=== PATIENT | female | born 1965 | race Caucasian/White ===

== ENCOUNTER 2022-07-17 15:39 | Outpatient (CLI) | payer OTHER, SELFPAY ==
--- NOTE | 2022-07-17 16:00 | CRLHL7_ITS ---
For Patients: As a result of the Century Cures Act, medical imaging exams and procedure reports are released immediately into your electronic medical record. You may view this report before your referring provider. If you have questions, please contact your health care provider. INDICATION: Left arm and face paresthesias. TECHNIQUE: CT of the head without contrast. Coronal and sagittal reformats are included. COMPARISON: None. FINDINGS: No CT evidence of acute cortical infarct. No loss of bundy white matter differentiation. No hyperdense vessels to suggest intracranial thrombus. No acute intracranial hemorrhage. No mass effect or midline shift. No hydrocephalus or extra-axial collections. White matter is within normal limits for age. No acute osseous abnormalities. Mastoid air cells and paranasal sinuses are clear. Normal soft tissues. IMPRESSION: IMPRESSION:1. No CT evidence of acute cortical infarct. No acute intracranial hemorrhage. No other acute intracranial findings. Please note that all CT scans at this facility use dose modulation, iterative reconstruction, and/or weight-based dosing when appropriate to reduce radiation dose to as low as reasonably achievable. Dictated by Nato Fam MD @ 07/17/2022 6:32:07 PM (Electronically Signed)
--- NOTE | 2022-07-17 17:00 | CRLHL7_ITS ---
For Patients: As a result of the Cures Act, medical imaging exams and procedure reports are released immediately into your electronic medical record. You may view this report before your referring provider. If you have questions, please contact your health care provider. CLINICAL HISTORY: TIA TECHNIQUE: The carotid circulations and the vertebral arteries in the neck were examined with graham-scale ultrasound, color-flow and Doppler spectral analysis. Degrees of stenosis were determined using SRU 2002 Consensus Panel Criteria. FINDINGS: Sonographic images demonstrate atherosclerotic plaque formation without suspicious soft tissue mass. There was antegrade blood flow demonstrated within the vertebral arteries and the subclavian arteries demonstrated a normal triphasic waveform. The spectral Doppler tracings of the common carotid, internal and external carotid arteries demonstrate turbulence and spectral broadening within the right ICA. There was mild significant elevation of peak systolic blood flow which would indicate a hemodynamically-significant stenosis by SRU criteria in the mid right ICA measuring 130 cm/second. The ICA/CCA peak systolic velocity ratio measures 1.8 on the right and 1.4 on the left. IMPRESSION: 50-69 percent stenosis of the mid right ICA. Less than 50 percent stenosis of the left ICA. Dictated by Fidel Hanson MD @ 07/18/2022 10:27:18 AM (Electronically Signed)
== END 2022-07-17 15:40 | disposition home or self-care (01) ==
LOC: CT 15:42
PROVIDERS: PCP Family Medicine; Visit Provider Family Medicine
DX: R20.2 Paresthesia of skin (principal); G45.9 Transient cerebral ischemic attack, unspecified
CPT/HCPCS: 70450; 93880

== ENCOUNTER 2022-12-10 16:12 | Outpatient (CLI) | payer BC, SELFPAY | END 2022-12-10 16:13 | disposition home or self-care (01) | PROVIDERS: PCP Family Medicine; Visit Provider Registered Nurse | DX: Z01.419 Encounter for gynecological examination (general) (routine) without abnormal findings (principal); N88.9 Noninflammatory disorder of cervix uteri, unspecified; Z13.6 Encounter for screening for cardiovascular disorders; Z13.1 Encounter for screening for diabetes mellitus | CPT/HCPCS: 80061; 82947; 87252 ==

== ENCOUNTER 2022-12-11 19:45 | Emergency (ER) | payer BC, SELFPAY ==
[2022-12-11] VITALS (10 sets, daily range): BP systolic 110–139; BP diastolic 64–81; PULSE 72–89; RESP 16; TEMP 36.4; O2SAT 95–97; BMI 33.5
--- NOTE | 2022-12-11 20:00 | ED.NURSE ---
On arrival PIV established, labs drawn. Patient placed on diagnostic cardiac sonographer, continuos pulse ox and NIBP. Patient reports numbness and tingling to left side of face into left shoulder/clavicle. No other stroke like symptoms. Remainder of neuros WNL. MD in to assess patient at 2000. Per MD stroke alert is not needed.
--- NOTE | 2022-12-11 20:33 | ED.NURSE ---
Per MD stroke alert is not needed.
--- NOTE | 2022-12-11 20:36 | ED_ITS ---
HPI - General Adult General Chief complaint: Neuro Symptoms/Altered Deficit Stated complaint: possible stroke Time Seen by Provider: 12/11/22 20:08 History of Present Illness HPI narrative: This 57-year-old female comes in reporting some tingling sensation in the left side of her face, left side of her neck and into the upper part of her left arm. These symptoms started earlier today. She does not report any weakness or speech change. She does have a mild headache and feels some pressure behind her left eye. She had similar symptoms about 5 months ago and did have CT scan of her head showing normal findings. She quit smoking at that time. She is taking Lipitor because she has some carotid plaques identified on ultrasound. She is reporting lots of lower extremity aches and pains since taking Lipitor. Related Data Home Medications Medication Instructions Recorded Confirmed cyanocobalamin (vitamin B-12) 100 100 mcg PO QDAY 03/11/22 12/11/22 mcg tablet (Vitamin B-12) diphenhydramine 25 1 tab PO Q6H PRN 03/11/22 12/11/22 mg-acetaminophen 500 mg tablet (Tylenol PM Extra Strength) multivitamin (Multiple Vitamins 1 tab PO QDAY 03/11/22 12/11/22 tablet) furosemide 20 mg tablet (Lasix) 20 mg PO QAM PRN 07/09/22 12/11/22 aspirin 81 mg capsule 81 mg PO QDAY 12/10/22 12/11/22 omega-3 417 mg-dha 120 mg-epa-276 cap PO 12/10/22 12/10/22 mg-fish oil 600 mg-tumeric capsule Previous Rx's Medication Instructions Recorded atorvastatin 40 mg tablet 40 mg PO QDAY #90 tabs 07/23/22 methylprednisolone 4 mg tablets in See Rx Instructions PO .COMPLEX 12/11/22 a dose pack (Medrol (Kemal)) #21 ea rosuvastatin 20 mg tablet (Crestor) 20 mg PO DAILY #30 tabs 12/11/22 Allergies Allergy/AdvReac Type Severity Reaction Status Date / Time latex Allergy Mild Rash Verified 12/11/22 19:55 Sulfa (Sulfonamide Allergy Rash Verified 12/11/22 19:55 Antibiotics) Review of Systems Status of ROS: Reports: 10 or more systems reviewed and unremarkable except as noted in History and below Narrative: Constitutional: No fevers, no weight gain or loss. Eyes: No discharge. No vision changes. HENT: No congestion, no sore throat, no ear pain. Cardiovascular: No chest pain, no palpitations. Respiratory: No shortness of breath, no wheezes, no cough. Gastrointestinal: No abdominal pain, no vomiting, no diarrhea. Genitourinary: No dysuria, no hematuria. Musculoskeletal: Normal range of motion. Skin: No rashes, no pruritis. Neurological: No dizziness, weakness, speech change. Sensory change as described above. Endo/Heme/Allergies: No bruising or bleeding. No polydipsia. Pysch: no suicidality, no anxiety, no insomnia. All other systems reviewed and are negative. PFSH PFSH Surgical History (Updated 12/09/22 @ 15:08 by Becky Baptiste ~ [facility] H/O excision of ganglion cyst (11/03/07) ?Z98.890 - Other specified postprocedural states (ICD-10) H/O tubal ligation ?Z98.51 - Tubal ligation status (ICD-10) History of arthroscopy of left shoulder (06/02/12) ?Z98.890 - Other specified postprocedural states (ICD-10) History of bunionectomy (03/23/14) ?Z98.890 - Other specified postprocedural states (ICD-10) History of carpal tunnel surgery of left wrist (~2004) ?Z98.890 - Other specified postprocedural states (ICD-10) S/P arthroscopy of right shoulder (10/24/10) ?Z98.890 - Other specified postprocedural states (ICD-10) Status post gastric bypass for obesity (04/25/09) ?Z98.84 - Bariatric surgery status (ICD-10) Status post left foot surgery (03/16/07) ?Z98.890 - Other specified postprocedural states (ICD-10) Family History Mother Arthritis Father Arthritis Social History (Updated 12/09/22 @ 15:09 by Becky Baptiste ~ [facility]) Narrative: former smoker-07/2022 quit after mini stroke Smoking Status: Former smoker What tobacco products do you use: cigarettes Smoking quit date/years: <= 15 years ago Do you use any of these nicotine containing products: None Second hand tobacco smoke exposure: No How often do you have a drink containing alcohol: never AUDIT-C Alcohol total score: 0 Non-prescribed substance use: denies use Little interest or pleasure in doing things: not at all Feeling down, depressed, or hopeless: not at all Exam Narrative: Exam Narrative: Constitutional: Well-developed, well-nourished, no acute distress. HEENT: Normocephalic, atraumatic. Neck: Normal range of motion. Nontender. Supple. Heart: Regular. No murmurs. Normal rate. Intact distal pulses. Lungs: Clear to auscultation. No chest discomfort. No wheezes, rhonchi, or rales. Abdomen: Normal bowel sounds. Nontender. No rebound tenderness. Genitalia: Deferred. Back: No midline tenderness. Normal range of motion. Extremities: Normal range of motion. No injury. Skin: Intact. No rash. Warm. No erythema or pallor. Neurologic: No altered sensation. No weakness. Alert and oriented. No facial asymmetry. Tongue is midline. Requirements Engineer strength is equal bilaterally. Joppll-ja-ioeb is normal. No pronator drift. She is able to raise each leg from the bed. Spurling's test is negative. Psychiatric: No suicidality. No anxiety or depression. No insomnia. Nursing notes and vitals signs are reviewed. Const: Vital Signs, click to edit/add: Vital Signs - 24 hr 12/11/22 19:50 12/11/22 20:04 12/11/22 20:05 Temperature 97.6 F Pulse Rate 75 76 Pulse Rate [Pulse Oximeter] 89 Respiratory Rate 16 Blood Pressure 137/74 Blood Pressure [Ri ght Upper Arm] 139/81 Pulse Oximetry 97 95 96 Oxygen Delivery Me thod Room Air 12/11/22 20:15 12/11/22 20:17 Temperature Pulse Rate 77 79 Pulse Rate [Pulse Oximeter] Respiratory Rate Blood Pressure 130/74 Blood Pressure [Ri ght Upper Arm] Pulse Oximetry 97 96 Oxygen Delivery Me thod Room Air Course Vital Signs Vital signs: Initial Vital Signs Temperature 97.6 F 12/11/22 19:50 Temperature Source Temporal Artery Scan 12/11/22 19:50 Pulse Rate 89 12/11/22 19:50 Respiratory Rate 16 12/11/22 19:50 Blood Pressure 139/81 12/11/22 19:50 Blood Pressure Mean 100 12/11/22 19:50 Blood Pressure Position Supine 12/11/22 19:50 Pulse Oximetry 97 12/11/22 19:50 Oxygen Delivery Method Room Air 12/11/22 19:50 Vital Signs Temperature 97.6 F 12/11/22 19:50 Pulse Rate 89 12/11/22 19:50 Respiratory Rate 16 12/11/22 19:50 Blood Pressure 139/81 12/11/22 19:50 Pulse Oximetry 97 12/11/22 19:50 Oxygen Delivery Method Room Air 12/11/22 19:50 Temperature 97.6 F 12/11/22 19:50 Pulse Rate 79 12/11/22 20:17 Respiratory Rate 16 12/11/22 19:50 Blood Pressure 130/74 12/11/22 20:17 Pulse Oximetry 96 12/11/22 20:17 Oxygen Delivery Method Room Air 12/11/22 20:17 Medical Decision Making MDM Narrative Medical decision making narrative: This patient comes in reporting symptoms of altered sensation mostly tingling in the left face and left upper extremity proximally. She has had symptoms like this in the past and did have a workup which was negative. She is not showing any signs of weakness and her neurologic exam is completely normal today. I did discuss lab and imaging options with the patient. She has had a workup done for these similar symptoms in the somewhat recent past. I did give reassurance is that she is not showing any sign of stroke. She does report chronic symptoms in her neck and had been accustomed to going to a chiropractor to have her neck adjusted. She was advised not to do this and has discontinued any neck manipulations. Her symptoms are not at all suspicious for a central process. She does not have a history of migraine headaches but does report some pain behind her left eye so this could be a migraine variant. More likely it is some peripheral nerve under some pressure causing sensations symptoms only. In a process of shared decision making the patient declined any further studies at this time. She did receive an oral dose of dexamethasone 10 mg and prescription for Medrol Dosepak. I advised her to discontinue the Lipitor and did provide a prescription for Crestor. She is instructed to follow-up with her primary physician to review this medication change. Discharge Plan Discharge Clinical Impression: Paresthesias Condition: Stable Additional Instructions: Discontinue Lipitor. Start Crestor. Take medication otherwise as prescribed. Follow up with primary physician to review medications. Return if worsening. Prescriptions: New rosuvastatin [Crestor] 20 mg tablet 20 mg PO DAILY Qty: 30 2RF methylprednisolone [Medrol (Kemal)] 4 mg tablets,dose pack See Rx Instructions .ROUTE .COMPLEX Qty: 21 0RF Rx Instructions: orally per package directions No Action furosemide [Lasix] 20 mg tablet 20 mg PO QAM PRN omega 7-did-aqc-fish-turmeric 417 mg-120 mg- 276 mg-600 mg capsule PO aspirin 81 mg capsule 81 mg PO QDAY multivitamin [Multiple Vitamins] Tablet 1 tab PO QDAY cyanocobalamin (vitamin B-12) [Vitamin B-12] 100 mcg tablet 100 mcg PO QDAY diphenhydramine-acetaminophen [Tylenol PM Extra Strength] 25-500 mg tablet 1 tab PO Q6H PRN atorvastatin 40 mg tablet 40 mg PO QDAY Qty: 90 3RF Follow Up/Referrals: Óscar Montague MD [Primary Care Provider] - Stand Alone Forms: [facility] Info Instructions
[2022-12-11] MEDS: dexAMETHasone 10 MG/ML inj PO (20:59)
== END 2022-12-11 21:09 | disposition home or self-care (01) ==
PROVIDERS: Emergency Provider Emergency Medicine Emergency Medical Services; PCP Family Medicine
DX: R20.2 Paresthesia of skin (principal)
CPT/HCPCS: 99283; 99284; J1100

== ENCOUNTER 2022-12-29 10:33 | Outpatient (CLI) | payer BC, SELFPAY ==
--- NOTE | 2022-12-29 10:45 | CRLHL7_ITS ---
For Patients: As a result of the Century Cures Act, medical imaging exams and procedure reports are released immediately into your electronic medical record. You may view this report before your referring provider. If you have questions, please contact your health care provider. BILATERAL SCREENING MAMMOGRAM WITH COMPUTER-AIDED DETECTION AND TOMOSYNTHESIS TECHNIQUE: CC and MLO views were obtained. These mammographic images have been obtained using full-field digital technique. These mammographic images were interpreted with the benefit of computer-aided detection. Breast Tomosynthesis was used in this interpretation. COMPARISON FILM: 10/30/21, 07/03/20, 01/14/19. FINDINGS: There are scattered areas of fibroglandular density IMPRESSION: There is no radiographic evidence for malignancy. ASSESSMENT: BI-RADS Category 1: Negative RECOMMENDATION: Routine screening mammogram in 1 year. A lay language report of this examination will be provided to the patient. Fidel Hanson M.D. Diagnostic Radiologist [email or web address] RAY/Dictated by: Fidel Hanson MD @ 12/29/2022 12:10:00 PM (Electronically Signed)
== END 2022-12-29 10:34 | disposition home or self-care (01) ==
LOC: MAMMO 10:34
PROVIDERS: PCP Family Medicine; Visit Provider Registered Nurse
DX: Z12.31 Encounter for screening mammogram for malignant neoplasm of breast (principal)
CPT/HCPCS: 77063; 77067; 87086

== ENCOUNTER 2023-04-13 06:08 | Day surgery (SDC) | payer OTHER, BC, SELFPAY ==
[2023-04-13 06:27] VITALS: BMI 31.6
[2023-04-13 06:28] VITALS: BP 133/77; PULSE 73; RESP 16; TEMP 36.3; TEMP 36.6; O2SAT 97
[2023-04-13] MEDS: ETHYL CHLORIDE 1 APPLICATION 1 APPLIC TOPICAL (06:50)
[2023-04-13] MEDS: BUPIVACAINE 0.5% 30 ML INJECTION (06:50)
[2023-04-13 07:15] VITALS: BP 139/66; PULSE 80; RESP 18; O2SAT 97
[2023-04-13 07:20] VITALS: BP 164/76; PULSE 72; RESP 20; O2SAT 98
[2023-04-13 07:25] VITALS: BP 149/70; PULSE 67; RESP 17; O2SAT 98
--- NOTE | 2023-04-13 07:26 | P.ORPRC_ITS ---
Procedure Note Date of procedure: 04/13/23 Procedure: PREOPERATIVE DIAGNOSIS: 1. Right carpal tunnel syndrome POSTOPERATIVE DIAGNOSIS: 1. Right carpal tunnel syndrome PROCEDURE: 1. Right open carpal tunnel release SURGEON: Abel Robins MD. HAND ALMOND BLANCHER: MIRANDA Reyes ANESTHESIA: Local anesthetic (50:50 mixture of 1% lidocaine with epi and 0.5% marcaine plain) - 10ml total IMPLANTS: None EBL: 2 mL TOURNIQUET: None COMPLICATIONS: None evident INDICATIONS: The patient is a pleasant 57-year-old female who has experienced right hand numbess/tingling affecting the radial 3.5 digits for multiple months. It has progressively gotten worse. Nonoperative management has been tried and failed, and therefore surgery was recommended. DESCRIPTION OF PROCEDURE: Following a thorough discussion of risks, benefits, and alternatives consent was obtained and the operative extremity was marked. The patient was brought to the operating room and placed supine on the operating table. Local anesthesia induction was undertaken in preop holding. No antibiotics were administered as this was planned to be a local case only. Proper time-out was performed identifying proper patient, site, and procedure. The operative extremity was prepped and draped in the appropriate sterile fashion using ChloraPrep. An incision was made in line with the radial border of the ring finger beginning 1 cm distal to the distal wrist crease and progressing for another 2.5cm distal. Caution was taken to stay proximal to Santana's cardinal line. Sharp incision through the skin, subcutaneous tissue, and palmar fascia was performed. The thenar musculature was bluntly elevated off the transverse carpal ligament. The ligament was directly visualized, and divided sharply with a 15 blade. This was released from its most proximal to the most distal extent. Metzenbaum scissor was also utilized to release the fascia extension proximally. We confirmed complete release of the transverse carpal ligament. Closure was performed with 4-O nylon in interrupted fashion. Soft dressings were applied, and the patient was transferred to the recovery room in stable condition. PLAN: 1. Encourage elevation of the operative extremity. 2. Range of motion of the fingers and hand/wrist as tolerated. 3. Ibuprofen/acetaminophen and/or Percocet as needed for pain control. 4. Follow up with PA visit or nurse visit in 12-16 days for wound check and suture removal.
[2023-04-13 07:30] VITALS: BP 135/59; PULSE 70; RESP 15; O2SAT 98
[2023-04-13] MEDS: NEOMYCIN/BACITRACIN/POLYMYXIN B 1 APPLIC TOPICAL (07:31)
[2023-04-13 07:35] VITALS: BP 136/73; PULSE 66; RESP 16; TEMP 36.7; O2SAT 96
== END 2023-04-13 07:47 | disposition home or self-care (01) ==
PROVIDERS: PCP Family Medicine; Visit Provider Orthopaedic Surgery Sports Medicine
PROC: (CPT 64721; principal; 2023-04-13 07:15)
DX: G56.01 Carpal tunnel syndrome, right upper limb (principal)
CPT/HCPCS: 64721; J0665

== ENCOUNTER 2023-05-07 14:54 | Outpatient (CLI) | payer BC, SELFPAY ==
--- NOTE | 2023-05-07 15:30 | MR_ITS ---
[facility] [address] [facility] [address] Phone:?[phone] Fax:?[phone] Referring Physician Information: Abel Robins M.D. [address] [facility] [address] Phone:?[phone] Fax:?[phone] Patient:Felicita Wade D.O.B:?1965 Sex:?Female Phone:?[phone] [facility] MRN:?[id number] Exam Date:?05/07/2023 EXAM: MRI EXAMINATION OF THE RIGHT HIP CLINICAL INFORMATION: Female, 57 years old, with right hip pain. INDICATION: Evaluate for gluteus medius/minimus tear. PRIOR SURGERY: None reported. PLAIN FILMS: Hip radiographs dated 04/28/2023. COMPARISONS: No prior MRIs available. TECHNICAL INFORMATION: Using a 1.5T MR scanner and a localizing surface coil: coronals: PD, T2 sagittals: PD, T2 oblique axials: PD straight axials: PDFS coronals: T1, STIR of pelvis and hips SEDATION: None CONTRAST: None FINDINGS: Hip joint: Physiologic hip effusion. Mild generalized thinning of the articular cartilage is present throughout the right hip joint, without convincing full-thickness chondral defect/loss. No intra-articular bodies. Labrum: Intrasubstance degeneration and poorly defined tearing is present throughout the anterosuperior labrum (axial PD oblique series 6 images 10-14). Proximal femur: No femoral occult fracture, stress injury, marrow edema or osteonecrosis. Normal femoral head/neck junction offset. No fibrocystic change. Minimal marginal osteophytosis. No convincing femoral cam morphology. Acetabulum: Mild marginal osteophytosis. Mild subchondral cystic change is present in the anterosuperior aspect of the acetabulum (axial PDFS series 7 image 6). No stress/occult fracture or periacetabular ossicle. Version: Decreased cranial acetabular anteversion borders on retroversion. Coverage: Right lateral center edge (CE) angle measures approximately 30? (normal 25?-39?), midline coronal series 4 image 14, corrected for pelvic obliquity. Ligamentum teres: Ligamentum teres is intact and unremarkable. Iliofemoral ligament: The iliofemoral ligament is moderately-markedly thickened (axial PD oblique series 6 images 10-13) Pelvis osseous structures: Sacral ala and sacroiliac joints: No stress/insufficiency fractures or marrow edema/pathology. No demonstrable sacroiliitis. Pubic rami and pubic symphysis: No stress/insufficiency fractures or marrow edema/pathology. Normal alignment without hypertrophy or evidence of ongoing osteitis pubis. Myotendinous structures: Gluteus abductors: Marked tendinopathy and high-grade attritional tearing of gluteus minimus (axial PDFS series 7 images 10-17). There is also moderate tendinopathy and ill-defined intermediate grade partial-thickness tearing of the anterior one half of the gluteus medius (axial PDFS series 7 images 8-14). Adductors: No demonstrable tendinopathy or strain/tear. Hamstrings: Moderate-marked common hamstrings tendinopathy, bilaterally, with intermediate grade partial-thickness tearing on the right and low-grade partial- thickness tearing on the left. Flexors: Intact iliopsoas and rectus femoris, without strain/tear. External rotators: Intact, without demonstrable ischiofemoral impingement. Gluteal aponeurotic fascia and IT band: Unremarkable. Bursae: Mild right greater trochanteric bursitis. Intrapelvic contents: Free fluid: No free fluid seen within the pelvis. Pelvic viscera: No discrete intrapelvic mass is identified. Lymph nodes: No lymphadenopathy by MRI size criteria. Neurovascular structures: No discrete cyst, mass or other compression upon the portions visualized of sciatic or femoral nerves. Lumbar spine: The visualized portions of the lower lumbar spine are unremarkable. IMPRESSION: 1. Marked gluteus minimus tendinopathy with high-grade attritional tearing. There is also moderate tendinopathy and ill-defined intermediate grade partial tearing involving the anterior one half of the gluteus medius. 2. Moderate-marked bilateral common hamstrings tendinopathy with intermediate grade partial-thickness tearing on the right and low-grade partial-thickness tearing in the left. 3. Mild osteoarthritis of the right hip joint. 4. Intrasubstance degeneration and poorly defined tearing of the anterosuperior labrum. No paralabral cyst. 5. Mild right greater trochanteric bursitis. 6. Nonspecific moderate-marked thickening of the iliofemoral ligament, which could reflect adhesive capsulitis. 7. No fracture or osseous stress reaction. BC Electronically signed on 05/07/2023 7:31:00 PM by Ra Villatoro M.D.
== END 2023-05-07 14:55 | disposition home or self-care (01) ==
PROVIDERS: PCP Family Medicine; Visit Provider Orthopaedic Surgery Sports Medicine
DX: M25.551 Pain in right hip (principal); S76.011A Strain of muscle, fascia and tendon of right hip, initial encounter; M16.11 Unilateral primary osteoarthritis, right hip; M70.61 Trochanteric bursitis, right hip; M75.01 Adhesive capsulitis of right shoulder
CPT/HCPCS: 73721

== ENCOUNTER 2023-07-24 07:05 | Outpatient (CLI) | payer BC, SELFPAY ==
--- NOTE | 2023-07-24 07:15 | MR_ITS ---
[facility] [address] [facility] [address] Phone:?[phone] Fax:?[phone] Referring Physician Information: Abel Robins M.D. [address] [facility] [address] Phone:?[phone] Fax:?[phone] Patient:Felicita Wade D.O.B:?1965 Sex:?Female Phone:?[phone] [facility] MRN:?[id number] Exam Date:?07/24/2023 EXAM: MRI of the LEFT KNEE, without contrast CLINICAL HISTORY: Left knee pain and swelling. Evaluate for tear of the medial meniscus. COMPARISONS: Plain radiographs 06/23/2023. TECHNICAL: MR sequences of the left knee: sagittals: PD, PDFS coronals: PD, T2FS axials: PD, PDFS CONTRAST: None SEDATION: None FINDINGS: Bones: No fracture, bone marrow contusion, or other suspicious bone marrow signal abnormality. Patellofemoral joint: Cartilage: There is diffuse grade II and III chondromalacia over the trochlear groove and diffuse grade II chondromalacia over the inferior two thirds of the patella. Retinacula: The medial and lateral retinacula are intact. Fat pads: The infrapatellar, quadriceps, and prefemoral fat pads are unremarkable. Knee joint: Effusion: Trace left knee joint effusion. Popliteal cyst: Small popliteal cyst. Intra-articular bodies: None. Posteromedial corner: The semimembranosus and pes anserine tendons are intact. Medial compartment: Medial meniscus: There is a slitlike very low-grade partial-thickness radial tear of the posterior horn of the medial meniscus best seen on coronal series 8 image 20 superimposed upon more diffuse free edge fraying of the body and posterior horn of the medial meniscus. There is extensive ill-defined tearing of the posterior meniscocapsular tissues. Cartilage: There is a 1.4 cm in AP dimension by 0.9 cm in transverse dimension area of grade II to III chondromalacia over the weight-bearing portion of the medial femoral condyle. Lateral compartment: Lateral meniscus: There is a 1.0 cm in length ill-defined free edge horizontal tear of the body of the lateral meniscus. Cartilage: There is a 2.0 cm in AP dimension by 1.3 cm in transverse dimension area of grade III and IV chondromalacia over the weight-bearing portion of the lateral femoral condyle with associated central osteophyte formation and a 1.5 x 2.0 cm area of grade II to III chondromalacia over the lateral tibial plateau. Ligaments: Anterior cruciate ligament: Intact. Posterior cruciate ligament: Intact. Medial collateral ligament: Intact. Posterior oblique ligament: Intact. Fibular collateral ligament: Intact. Posterolateral corner: The distal biceps femoris tendon, iliotibial band, popliteus tendon, popliteus muscle, popliteofibular ligament, and arcuate ligament are intact. Extensor mechanism: Patellar tendon: Intact. Quadriceps tendon: Intact. IMPRESSION: 1. 1.0 cm in length ill-defined free edge horizontal tear of the body of the lateral meniscus. 2. Slitlike very low-grade partial-thickness radial tear of the posterior horn of the medial meniscus superimposed upon more diffuse free edge fraying of the body and posterior horn of the medial meniscus. Extensive ill-defined tearing of the medial compartment posterior meniscocapsular tissues. 3. 2.0 x 1.3 cm area of grade III and IV chondromalacia over the weight-bearing portion of the lateral femoral condyle with associated central osteophyte formation and a 1.5 x 2.0 cm area of grade II to III chondromalacia over the lateral tibial plateau. 4. 1.4 x 0.9 cm area of grade II to III chondromalacia over the weight-bearing portion of the medial femoral condyle. 5. Diffuse grade II and III chondromalacia over the trochlear groove and diffuse grade II chondromalacia over the inferior two thirds of the patella. 6. Trace left knee joint effusion. Small popliteal cyst. 7. No ligamentous injury of the left knee. RCB Electronically signed on 07/24/2023 9:52:00 AM by Ethan Navarro M.D.
== END 2023-07-24 07:06 | disposition home or self-care (01) ==
LOC: MRI 07:05
PROVIDERS: PCP Family Medicine; Visit Provider Orthopaedic Surgery Sports Medicine
DX: M25.562 Pain in left knee (principal); S83.282A Other tear of lateral meniscus, current injury, left knee, initial encounter; S83.242A Other tear of medial meniscus, current injury, left knee, initial encounter; M23.92 Unspecified internal derangement of left knee; M94.262 Chondromalacia, left knee; M25.462 Effusion, left knee
CPT/HCPCS: 73721

== ENCOUNTER 2023-08-14 09:07 | Outpatient (CLI) | payer BC, SELFPAY | END 2023-08-14 09:08 | disposition home or self-care (01) | LOC: NFLDREF 14:49 | PROVIDERS: PCP Family Medicine; Referring Provider Family Medicine; Visit Provider Family Medicine | DX: B35.1 Tinea unguium (principal) | CPT/HCPCS: 80076 ==

== ENCOUNTER 2023-11-13 08:07 | Outpatient (CLI) | payer BC, SELFPAY | END 2023-11-13 08:08 | disposition home or self-care (01) | LOC: NFLDREF 11:55 | PROVIDERS: PCP Internal Medicine; Referring Provider Internal Medicine; Visit Provider Internal Medicine | DX: E78.5 Hyperlipidemia, unspecified (principal); Z13.29 Encounter for screening for other suspected endocrine disorder | CPT/HCPCS: 80053; 80061; 84443 ==

== ENCOUNTER 2024-03-22 14:35 | Outpatient (CLI) | payer BC, SELFPAY ==
[2024-03-22 15:37] VITALS: BP 126/82; PULSE 82; RESP 18
--- NOTE | 2024-03-22 15:50 | W.PM.STED ---
Stress Test Note Date Date Seen: 03/22/24 Date of test: 03/22/24 Providers Primary care provider: Boni Brunner Stress test physician: Abhi Vega Stress Test Note Stress test ordered: Stress Echo Indication for test: Chest pain Results discussion: Patient is a 58-year-old female presents here for the above test after discussion the risks benefits and side effects she would like to proceed pretest EKG shows normal sinus rhythm, she does have a right bundle-branch block. Ventricular rate is 62 blood pressure is 164/89. Cardiac stress test medical history form is reviewed in detail. Patient is exercised following Luis Fernando protocol for duration of 9 minutes, and achieved a metabolic equivalent of 10.3 Mets. Her maximum heart rate was 163 which is 118% of the maximum. She did not have any anginal equivalent symptoms. There is no chest pain. No significant ST wave changes suggestive of ischemia are noted. There is no ventricular or dysrhythmia Impression: Negative electrographic portion of stress echo, conditioning was felt to be good Follow up suggested: Await echo imaging, clinical correlation with this will be needed, patient left this testing facility in good condition. There were no complications.
== END 2024-03-22 15:43 | disposition home or self-care (01) ==
LOC: STRESS 14:36
PROVIDERS: PCP Internal Medicine; Visit Provider Family Medicine
DX: R07.89 Other chest pain (principal); I73.9 Peripheral vascular disease, unspecified
CPT/HCPCS: 93016; 93325; 93351

== ENCOUNTER 2024-04-13 14:47 | Outpatient (CLI) | payer BC, SELFPAY ==
--- NOTE | 2024-04-13 15:00 | CRLHL7_ITS ---
For Patients: As a result of the Cures Act, medical imaging exams and procedure reports are released immediately into your electronic medical record. You may view this report before your referring provider. If you have questions, please contact your health care provider. BILATERAL SCREENING MAMMOGRAM WITH COMPUTER-AIDED DETECTION AND TOMOSYNTHESIS TECHNIQUE: CC and MLO views were obtained. These mammographic images have been obtained using full-field digital technique. These mammographic images were interpreted with the benefit of computer-aided detection. Breast Tomosynthesis was used in this interpretation. COMPARISON FILM: 12/29/22, 10/30/21, 07/03/20. FINDINGS: There are scattered areas of fibroglandular density IMPRESSION: There is no radiographic evidence for malignancy. ASSESSMENT: BI-RADS Category 1: Negative RECOMMENDATION: Routine screening mammogram in 1 year. A lay language report of this examination will be provided to the patient. Fidel Hanson M.D. Diagnostic Radiologist [email or web address] Transcribed: 6:30 p.mMyla [email or web address]/Dictated by: Fidel Hanson MD @ 04/14/2024 11:21:00 AM (Electronically Signed)
== END 2024-04-13 14:48 | disposition home or self-care (01) ==
LOC: MAMMO 14:49
PROVIDERS: PCP Family Medicine; Visit Provider Family Medicine
DX: Z12.31 Encounter for screening mammogram for malignant neoplasm of breast (principal)
CPT/HCPCS: 77063; 77067

== ENCOUNTER 2024-08-03 16:06 | Outpatient (CLI) | payer BC, SELFPAY | END 2024-08-03 16:07 | disposition home or self-care (01) | PROVIDERS: PCP Family Medicine; Visit Provider Family Medicine | DX: R03.0 Elevated blood-pressure reading, without diagnosis of hypertension (principal); E78.5 Hyperlipidemia, unspecified; F41.9 Anxiety disorder, unspecified; I73.9 Peripheral vascular disease, unspecified; M16.11 Unilateral primary osteoarthritis, right hip; R00.2 Palpitations; Z98.84 Bariatric surgery status | CPT/HCPCS: 80053; 80061; 82306; 82525; 82607; 82728; 83735; 84443; 84446; 84590; 84597; 84630 ==

== ENCOUNTER 2024-08-15 15:10 | Outpatient (CLI) | payer BC, SELFPAY ==
--- NOTE | 2024-08-15 15:45 | CRLHL7_ITS ---
For Patients: As a result of the Cures Act, medical imaging exams and procedure reports are released immediately into your electronic medical record. You may view this report before your referring provider. If you have questions, please contact your health care provider. CLINICAL HISTORY: Peripheral vascular disease TECHNIQUE: The carotid circulations and the vertebral arteries in the neck were examined with graham-scale ultrasound, color-flow and Doppler spectral analysis. Degrees of stenosis were determined using SRU 2002 Consensus Panel Criteria. Comparison: 07/17/2022 FINDINGS: Sonographic images demonstrate mild bilateral atherosclerotic plaque formation without suspicious soft tissue mass. There was antegrade blood flow demonstrated within the vertebral arteries and the subclavian arteries demonstrated a normal triphasic waveform. The spectral Doppler tracings of the common carotid, internal and external carotid arteries demonstrate no abnormal turbulence or spectral broadening. There was no significant elevation of peak systolic blood flow which would indicate a hemodynamically-significant stenosis by SRU criteria. The ICA/CCA peak systolic velocity ratio measures 1.1 on the right and 1.2 on the left. IMPRESSION: Less than 50 percent stenosis of the internal carotid arteries bilaterally. Dictated by Fidel Hanson MD @ 08/16/2024 5:57:02 AM (Electronically Signed)
== END 2024-08-15 15:11 | disposition home or self-care (01) ==
LOC: US 15:11
PROVIDERS: PCP Family Medicine; Visit Provider Family Medicine
DX: I73.9 Peripheral vascular disease, unspecified (principal); I65.23 Occlusion and stenosis of bilateral carotid arteries
CPT/HCPCS: 93880

== ENCOUNTER 2024-11-08 16:15 | Outpatient (CLI) | payer BC, SELFPAY | END 2024-11-08 16:16 | disposition home or self-care (01) | LOC: NFLDREF 16:16 | PROVIDERS: PCP Family Medicine; Visit Provider Family Medicine | DX: D64.9 Anemia, unspecified (principal) | CPT/HCPCS: 82728 ==

== ENCOUNTER 2024-11-17 14:52 | Outpatient (CLI) | payer BC, SELFPAY ==
--- NOTE | 2024-11-17 15:00 | CRLHL7_ITS ---
For Patients: As a result of the Century Cures Act, medical imaging exams and procedure reports are released immediately into your electronic medical record. You may view this report before your referring provider. If you have questions, please contact your health care provider. INDICATION: Lung cancer screening. History of smoking. High risk patient with greater than pack-year smoking history. TECHNIQUE: Low-dose lung cancer screening non-contrast CT chest. Dose reduction techniques were used. COMPARISON: None. FINDINGS: NODULES: Calcified granuloma within the right upper lobe incidentally noted. LUNGS AND PLEURA: No infiltrate or pleural effusion. MEDIASTINUM: Left axillary lymph nodes are similar to prior mammogram studies. Visualized thyroid gland is unremarkable. No adenopathy in the mediastinum. CORONARY ARTERY CALCIFICATION: None. LIMITED UPPER ABDOMEN: Possible subtle gallstones in the gallbladder. Postop changes to the stomach. MUSCULOSKELETAL: Multilevel degenerative spurring throughout the thoracic spine. No vertebral body compression fracture. IMPRESSION: 1. Negative for lung cancer screening purposes. 2. Possible gallstones. Consider right upper quadrant ultrasound. LUNG-RADS CATEGORY: 2: Benign. RADIOLOGIST RECOMMENDATION: Continue annual screening with low-dose CT chest in 12 months. Please note that all CT scans at this facility use dose modulation, iterative reconstruction, and/or weight-based dosing when appropriate to reduce radiation dose to as low as reasonably achievable. Dictated by Fidel Hanson MD @ 11/18/2024 9:29:33 AM (Electronically Signed)
== END 2024-11-17 14:53 | disposition home or self-care (01) ==
LOC: CT 14:52
PROVIDERS: PCP Family Medicine; Visit Provider Family Medicine
DX: Z12.2 Encounter for screening for malignant neoplasm of respiratory organs (principal); Z87.891 Personal history of nicotine dependence
CPT/HCPCS: 71271

== ENCOUNTER 2025-01-30 15:13 | Outpatient (CLI) | payer BC, SELFPAY ==
--- NOTE | 2025-01-30 15:30 | MR_ITS ---
[facility] [address] [facility] [address] Phone:?[phone] Fax:?[phone] Referring Physician Information: Gustavo Bhardwaj [address] [facility] [address] Phone:?[phone] Fax:?[phone] Patient:Felicita Wade D.O.B:?1965 Sex:?Female Phone:?[phone] [facility] MRN:?[id number] Exam Date:?01/30/2025 EXAM: MRI of the RIGHT SHOULDER, without contrast CLINICAL INFORMATION: Female, 59 years old, with right shoulder pain. INDICATION: Evaluate for internal derangement. PRIOR SURGERY: History of rotator cuff repair in 2010. PLAIN FILMS: Shoulder radiographs dated 01/20/2025. COMPARISONS: Right shoulder MRI dated 10/04/2010. TECHNICAL INFORMATION: Using a 1.5T MR scanner and a localizing surface coil: coronal obliques: PD, T2FS sagittal obliques: T2, PDFS axials: PD, PDFS SEDATION: None CONTRAST: None FINDINGS: Bones: Proximal humerus: Surgical anchors in the humeral head reflect rotator cuff repair, described below. No stress/occult fracture otherwise abnormal marrow signal/pathology. No humeral Hill-Sachs or reverse Hill-Sachs lesion/impaction or contusion. Glenoid: No fracture or marrow edema/pathology. No osseous Bankart lesion. Rotator cuff and muscles/tendons: Supraspinatus: Status post repair. Moderate-marked tendinopathy and fraying with a 1.5 x 1.1 cm area of near full-thickness tearing at the myotendinous junction (coronal T2 series 7 image 12 and sagittal T2 series 9 image 12). Grade 2 muscle atrophy. Infraspinatus: Moderate infraspinatus tendinopathy and fraying, without tendon tear or muscle atrophy. Teres minor: No tendinopathy, tear or atrophy. Subscapularis: Mild tendinopathy of the superior distal subscapularis without tendon tear or muscle atrophy. Deltoid: No strain or atrophy. Coracoacromial arch: Acromion morphology: Status post anterior acromioplasty for subacromial decompression, with good result. No os acromiale. Acromiohumeral space: The acromiohumeral space is decompressed. Coracohumeral space: The coracohumeral space is within normal limits. Acromioclavicular joint: Joint: Status post AC joint resection for subacromial decompression, good result. Ligaments: Coracoclavicular ligaments are intact. Bursae: Subacromial-subdeltoid: Mild subacromial subdeltoid bursitis. Subcoracoid: No convincing subcoracoid bursal thickening/bursitis. Biceps tendon: The long head of the biceps tendon is present within the bicipital groove. The intra-articular and extra-articular segments are intact without tendinosis, tenosynovitis, or displacement. Glenohumeral joint: Effusion/cyst: Small glenohumeral joint effusion. Articular cartilage: Humeral head: Mild thinning of the articular cartilage along the medial aspect of the humeral head with mild inferomedial marginal osteophytosis. Glenoid: Mild thinning the glenoid articular cartilage, with mild anterior marginal osteophytosis. Loose bodies: No discrete intra-articular body within the joint. Labrum:?Circumferential degeneration and poorly defined fraying of the labrum which is of doubtful clinical significance. Inferior glenohumeral ligament/axillary pouch:?Mild thickening of inferior capsuloligamentous structures (coronal PD series 6 images 12-19). Additionally, there is soft tissue thickening throughout the rotator interval (sagittal PD series 8 images 814) IMPRESSION: 1. Status post supraspinatus tendon repair. There is moderate-marked supraspinatus tendinopathy with a 1.5 x 1.1 cm area of near full-thickness recurrent tearing of the central myotendinous junction. 2. Moderate infraspinatus and mild subscapularis tendinopathy, without tear. 3. 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 4. Status post AC joint resection and anterior acromioplasty for subacromial decompression, with good result. However, there is mild subpulmonic subdeltoid bursitis. 5. Findings in keeping with any clinical symptoms of adhesive capsulitis. 6. Circumferential degeneration and fraying of the labrum, which is of doubtful clinical significance. 7. No tendinopathy, displacement, or tear of the biceps long head tendon. BC Electronically signed on 01/31/2025 8:12:00 AM by Ra Villatoro M.D.
== END 2025-01-30 15:14 | disposition home or self-care (01) ==
LOC: MRI 15:14
PROVIDERS: PCP Family Medicine; Visit Provider Physician Assistant Surgical
DX: M25.511 Pain in right shoulder (principal); M75.101 Unspecified rotator cuff tear or rupture of right shoulder, not specified as traumatic; M19.011 Primary osteoarthritis, right shoulder; M25.411 Effusion, right shoulder; M75.01 Adhesive capsulitis of right shoulder; Z98.890 Other specified postprocedural states
CPT/HCPCS: 73221

== ENCOUNTER 2025-04-26 08:35 | Day surgery (SDC) | payer BC, SELFPAY ==
[2025-04-26] VITALS (16 sets, daily range): BP systolic 113–139; BP diastolic 55–88; PULSE 62–71; RESP 16; TEMP 36.4–36.9; O2SAT 94–100; BMI 34.2
--- NOTE | 2025-04-26 09:12 | W.PM.H&PU ---
History & Physical Update History & Physical Update H&P Reviewed and patient assessed: No changes noted
[2025-04-26] MEDS: SODIUM CHLORIDE 0.9 % (FLUSH) 10 ML SYRINGE IVF (09:30)
[2025-04-26] MEDS: LACTATED RINGERS 1000 ML 1,000 ML 100 ML IV ×2 (09:30→11:07)
[2025-04-26] MEDS: MIDAZOLAM HCL 1 MG/ML inj IVP (10:04)
--- NOTE | 2025-04-26 10:04 | SUR.PREOP ---
TIME?OUT:?1003 PT/RN/MDA?VERIFICATION?OF?SURGICAL?SITE,?PROCEDURE,?AND?CONSENT OBTAINED?PRIOR?TO?INVASIVE?PROCEDURE.
--- NOTE | 2025-04-26 10:20 | W.PM.NB ---
Nerve Block Nerve Block Time Seen by Provider: 10:05 Date Seen: 04/26/25 Type of block requested by surgeon for post-operative analgesia: supraclavicular Side: right Time out performed: Yes Verification of patient name: Yes Verification of date of : Yes Site marking: site marked Name of person performing procedure: Gerber Continuous monitoring Was continuous monitoring of O2 sat, B/P, teletypesetter monitor, recorded every 15 minutes?: Yes Procedure Checklist: sterile prep, needles and gloves Ultrasound guided. Images saved: Yes Medications given in 5ml increments after negative aspiration: Marcaine %: 0.25 mL: 5 Needle gauge: 22 and Exparel mL: 10 Needle gauge: 22 Patient tolerated procedure well: Yes Block Charges Block Charge (with Pro Fee): Brachial Plexus Use of Ultrasound Machine for Block: Yes- US Guidance/pain block
--- NOTE | 2025-04-26 10:21 | P.ANES_ITS ---
Anesthesia Charges Start Date/Time Anesthesia Start Date: 04/26/25 Anesthesia Start Time: 10:14 Stop Date/Time Anesthesia Stop Date: 04/26/25 Anesthesia Stop Time: 12:40 Coding CPT Codes CPT Codes: ANESTH SURGERY OF SHOULDER - 39099 ([id number]) P3 - PATIENT W/SEVERE SYS DISEASE, QK - ATTENDING PHYSICIAN 2-4 CNCRNT ANES PROC, QX - OFFICE NURSE PRACTITIONER SVC W/ MD MED DIRECTION
--- NOTE | 2025-04-26 10:21 | W.ANESCHARGE ---
Anesthesia Charges Start Date/Time Anesthesia Start Date: 04/26/25 Anesthesia Start Time: 10:14 Stop Date/Time Anesthesia Stop Date: 04/26/25 Anesthesia Stop Time: 12:40 Coding CPT Codes CPT Codes: ANESTH SURGERY OF SHOULDER - 41819 ([id number]) P3 - PATIENT W/SEVERE SYS DISEASE, QK - PRACTICE COORDINATOR 2-4 CNCRNT ANES PROC, QX - CALL WORKER PERSON SVC W/ MD MED DIRECTION
--- NOTE | 2025-04-26 12:32 | PM.ORPRC ---
Procedure Note Date of procedure: 04/26/25 Procedure: PREOPERATIVE DIAGNOSES: 1. Right shoulder rotator cuff re-tear. POSTOPERATIVE DIAGNOSES: 1. Right shoulder rotator cuff re-tear. 2. Right shoulder retained loose suture NAME OF OPERATION: 1. Right shoulder arthroscopic rotator cuff re-repair. 2. Right shoulder arthroscopic removal of foreign body (retained loose suture) SURGEON: Abel Robins MD STRATEGIC PLANNING ANALYST: Edgar Severino PA-C. Of note, a skilled certified anesthesiologist assistant was critical for this case to aide in patient positioning, suture manipulation, arm positioning, instrument positioning, and closure. ANESTHESIA: General plus preoperative supraclavicular block. EBL: 25 mL IMPLANTS: Arthrex 5.5 mm BioComposite corkscrew suture anchor (x1) Arthrex 5.5 mm BioComposite SwiveLock suture anchor (x2); COMPLICATIONS: None evident INDICATIONS: The patient is a pleasant, 59-year-old female who underwent a right shoulder rotator cuff mini open repair in the remote past. She did well for number of years. Unfortunately, she had recurrent pain, weakness, and dysfunction. Physical exam was concerning for rotator cuff retear. MRI was obtained indeed showed a significant rotator cuff re-tear of the supraspinatus. Given her dysfunction and failure nonoperative management, surgery was indicated. FINDINGS: Exam under anesthesia revealed stable shoulder with excellent range of motion. The diagnostic arthroscopy revealed relatively healthy articular cartilage of the glenohumeral joint. The Subscapularis tendon was intact with a healthy attachment. The long head of the biceps tendon was intact. The superior rotator cuff tendon was found to be torn full-thickness close to the mild tendinous junction. There was still tendon tissue on the far medial tissue. There also was some posterior retraction of the tendon as I got closer to the footprint on the greater tuberosity. The labrum was degeneratively frayed minimally in the superior and posterior regions. No loose bodies were identified within the pouch or subscapularis recess. PROCEDURE: Following a thorough discussion of risks, benefits, and alternatives, consent was obtained and the right shoulder was marked. The patient was brought to the operating room and placed supine on the operating table. Induction of anesthesia was completed after preoperative supraclavicular block was administered in preop holding. Appropriate time out was performed identifying proper patient, site, and procedure. 2 g IV Ancef was administered within 1 hour of incision preoperatively. The right upper extremity was prepped and draped in the appropriate sterile fashion using ChloraPrep prep. This was after the patient was positioned in the beach chair with their head in neutral alignment and all bony prominences well padded. The shoulder was insufflated with 20mL of normal saline via an 18g spinal needle from a posterior approach. An 11 blade skin incision allowed a blunt trochar to be inserted and diagnostic arthroscopy to be performed with the findings as noted above. Thereafter, the subacromial space was entered. Here, a complete bursectomy was completed allow improved visualization of the rotator cuff tear pattern. The tear was an oblique/longitudinal split of the supraspinatus itself extending from the anterolateral part towards the posteromedial direction. The posterior portion of the supraspinatus had fallen posteriorly. The medial portion of course had retracted medially. This was worthy of marginal convergence sutures (x2) followed by an anteromedial anchor (corkscrew). The double loaded corkscrew sutures were passed in a horizontal mattress fashion through both the posterior tissue and the more medial anterior tissue as well. These tails were brought to 2 separate lateral row anchors with excellent reapproximation of the rotator cuff to the greater tuberosity in conjunction with a marginal convergence sutures. [A small dog ear in the posterior distal tendon tissue was captured with the middle part of a SutureTape and a luggage tag created. These tails were brought to the anterolateral anchor is again helping with reapproximation. Prior to anchor straight truck driver removal, the eyelet sutures were tugged on for each anchor and found that the anchor had excellent stability within the bone. The shoulder was placed through range of motion and found to be stable. The rotator cuff was re-probed and found to be stable. Instruments were removed. Excess fluid was drained, closure performed with 4-0 Monocryl and Steri-Strips. Dressings were applied. Sling was applied. The patient was awoken from anesthesia and transferred to the PACU in stable condition. A skilled certified anesthesiologist assistant was critical for this case to aid in patient positioning, limb positioning, skill to manipulate arthroscopic instruments and camera, suture management, patient safety, and closure. PLAN: 1. Elbow, forearm, wrist and digit range of motion as tolerated. 2. Encouraged ice. 3. Oxycodone for pain as needed. 4. Sling at all times except for ROM and showering. 5. Follow up with PA visit in 1-2 weeks for wound check. Initiate physical therapy following that visit for passive range of motion. Initiate active assisted range of motion at 6 weeks (the rehab process would be slow due to the revision nature). May do pendulums now.
--- NOTE | 2025-04-26 12:57 | P.ANES_ITS ---
Anesthesia Charges Start Date/Time Anesthesia Start Date: 04/26/25 Anesthesia Start Time: 10:14 Stop Date/Time Anesthesia Stop Date: 04/26/25 Anesthesia Stop Time: 12:40 Coding CPT Codes CPT Codes: ANESTH SURGERY OF SHOULDER - 90616 ([id number]) P3 - PATIENT W/SEVERE SYS DISEASE, QK - AGRICULTURE MANAGER 2-4 CNCRNT ANES PROC, QX - HYBRID POWERTRAIN DEVELOPMENT ENGINEER SVC W/ MD MED DIRECTION
--- NOTE | 2025-04-26 12:57 | W.ANESCHARGE ---
Anesthesia Charges Start Date/Time Anesthesia Start Date: 04/26/25 Anesthesia Start Time: 10:14 Stop Date/Time Anesthesia Stop Date: 04/26/25 Anesthesia Stop Time: 12:40 Coding CPT Codes CPT Codes: ANESTH SURGERY OF SHOULDER - 79971 ([id number]) P3 - PATIENT W/SEVERE SYS DISEASE, QK - HAND FLATWORK FINISHER 2-4 CNCRNT ANES PROC, QX - WIRE MILL OPERATOR SVC W/ MD MED DIRECTION
== END 2025-04-26 14:47 | disposition home or self-care (01) ==
LOC: OR 08:36
PROVIDERS: PCP Family Medicine; Visit Provider Orthopaedic Surgery Sports Medicine
PROC: (CPT 29805; principal; 2025-04-26 10:30)
DX: M75.121 Complete rotator cuff tear or rupture of right shoulder, not specified as traumatic (principal); M19.011 Primary osteoarthritis, right shoulder; Z18.89 Other specified retained foreign body fragments; G89.18 Other acute postprocedural pain; E66.9 Obesity, unspecified; Z68.34 Body mass index [BMI] 34.0-34.9, adult
CPT/HCPCS: 29827; 01630; 64415; 76942; C1713; J0665; J0666; J0690; J1100; J2250; J2405; J2704; J3010; J7120

== ENCOUNTER 2025-07-03 12:56 | Outpatient (CLI) | payer BC, SELFPAY ==
--- NOTE | 2025-07-03 13:20 | CRLHL7_ITS ---
For Patients: As a result of the Century Cures Act, medical imaging exams and procedure reports are released immediately into your electronic medical record. You may view this report before your referring provider. If you have questions, please contact your health care provider. INDICATION: BILATERAL SCREENING MAMMOGRAM, ASYMPTOMATIC 59 Y/O FEMALE COMPARISON: 04/13/2024, 12/29/2022, 10/30/2021 TECHNIQUE: Digital mammogram in CC and MLO projections including computer-aided detection (CAD) and tomosynthesis. BREAST COMPOSITION: There are scattered areas of fibroglandular density. FINDINGS: No suspicious findings. ASSESSMENT: BI-RADS 2 Benign RECOMMENDATION: Annual screening mammogram. A lay language report of this examination will be provided to the patient. Dictated by: Fidel Hanson MD @ 07/04/2025 09:25:51 (Electronically Signed)
== END 2025-07-03 12:57 | disposition home or self-care (01) ==
LOC: MAMMO 12:56
PROVIDERS: PCP Family Medicine; Visit Provider Family Medicine
DX: Z12.31 Encounter for screening mammogram for malignant neoplasm of breast (principal)
CPT/HCPCS: 77063; 77067